=== PATIENT | male | born 1960 | race Caucasian/White ===

== ENCOUNTER 2018-09-28 09:10 | Day surgery (SDC) | payer OTHER ==
[2018-09-25 16:04] VITALS: BMI 25.2
[~2018-09-28 09:10] MED LIST: LACTATED RINGERS 1,000 ML IV SCH; LIDOCAINE 1% 20 ML VIAL (10MG/ML) FOR IV START INTRADERMA PRN
[2018-09-28 09:43] VITALS: RESP 16; TEMP 97.5
[2018-09-28] MEDS ORDERED: KETAMINE 10 MG/ML 20 ML VIAL ONE (10:59)
[2018-09-28] MEDS ORDERED: MIDAZOLAM 2 MG/2 ML VIAL ONE (10:59)
[2018-09-28] MEDS ORDERED: LIDOCAINE 1% INJ 10MG/ML (20 ML MDV) ONE (10:59)
[2018-09-28] MEDS ORDERED: GLYCOPYRROLATE 0.2 MG/ML 2 ML VIAL ONE (10:59)
[2018-09-28] MEDS ORDERED: PROPOFOL 10 MG/ML 20 ML VIAL IV ONE (10:59)
[2018-09-28 12:16] VITALS: BP 138/95; PULSE 66
--- NOTE | 2018-09-28 14:00 | P.PCN ---
Date of Procedure: 09/28/18 Procedure(s) Performed: Procedures: 1. Esophagogastroduodenoscopy and esophageal dilation using the Microvasive zffhgtc-rrq-owbei balloon dilator size 10-12 mm. 2. Total colonoscopy. Preoperative diagnosis: 1. Dysphagia and history of esophageal stricture. 2. Screening colonoscopy. Postoperative diagnosis: 1. Hiatal hernia and esophageal stricture dilated up to 12 mm. 2. Sigmoid diverticulosis with no evidence of strictures, polyps or cancer. Preparation: HalfLytely prep. Sedation: Was provided by anesthesia. Brief clinical history: The patient is a 58-year-old male who is scheduled for this evaluation because of issues with dysphagia for the last 2 years. He had an upper endoscopy and colonoscopy 10 years ago and had dilation of his esophagus at that time. Apparently, he has done well until around 2 years ago. He was supposed to have an upper endoscopy and dilation 1 year ago but had to reschedule. His dysphagia has been happening consistently but is not reporting weight loss or other alarm symptoms. The colonoscopy is and for screening. He has no abdominal complaints, bleeding or anemia. Procedure: With the patient on his left lateral decubitus position and after informed consent and adequate sedation, I passed the Olympus-GIF H 190 video upper endoscope through the cricopharyngeus down the esophagus. There was a Zenker's diverticulum noted. In the distal esophagus there was a benign appearing stricture that did not allow the advancement of the endoscope. I proceeded to pass the Microvasive wpeqeos-mjy-dtypo balloon dilator size 10-12 mm through the operating channel of the endoscope, centered it at the level of the stricture and inflated it first to 10 then to 11 mm following which I was able to pass the endoscope through the hiatal hernia to the rest of the stomach. The stomach was insufflated with air and inspected in detail including the retroflex view in the cardia. Finally, the endoscope was passed through the pylorus into the duodenum. The stomach, pyloric channel, duodenal bulb, post bulbar area and descending duodenum appeared within normal limits. At this point, the endoscope was withdrawn back to the esophagus and I centered the balloon at the level of the stricture and inflated it to 12 mm then the endoscope was withdrawn and I proceeded to perform the colonoscopy. Perianal area did not show any fissures or fistulas. There were no masses felt on digital rectal examination. The Olympus CFH 190L video colonoscope was then inserted in the rectum in the usual fashion and advanced to the cecum. There were multiple diverticular orifices seen scattered in the sigmoid but there was no evidence of acute diverticulitis or strictures. No polyps or tumors were seen. I retroflexed the endoscope in the rectum before the endoscope was withdrawn. Low-grade internal hemorrhoids were noted with no evidence of bleeding. The patient tolerated the procedure well. Plan: The patient was reassured. He will be on liquid diet today and can advance his diet tomorrow as tolerated. He will let us know as soon as he has recurrence of his symptoms so we can schedule further dilation. Discussed dietary measures for his diverticulosis and I recommended repeat colonoscopy in 10 years. He will follow up with you as planned.
== END 2018-09-28 12:45 | disposition home or self-care (01) ==
LOC: ORWHC2ENDO 09:10
DX: K22.2 Esophageal obstruction (principal); Z12.11 Encounter for screening for malignant neoplasm of colon; K44.9 Diaphragmatic hernia without obstruction or gangrene; K57.30 Diverticulosis of large intestine without perforation or abscess without bleeding; K64.8 Other hemorrhoids; E78.5 Hyperlipidemia, unspecified; F17.210 Nicotine dependence, cigarettes, uncomplicated; Z52.4 Kidney donor; Z79.899 Other long term (current) drug therapy
CPT/HCPCS: 43249; J2250; J2001; J2704; C1726; G0121

== ENCOUNTER → 2018-11-22 | Outpatient (CLI) | payer OTHER ==
--- NOTE | 2018-11-22 17:38 | CT ---
EXAMINATION TYPE: CT abdomen pelvis wo con DATE OF EXAM: 11/22/2018 HISTORY: lower anterior abdominal pain CT DLP: 448.7 mGycm. Automated Exposure Control for Dose Reduction was Utilized. TECHNIQUE: CT scan of the abdomen and pelvis is performed without oral or IV contrast. COMPARISON: NONE FINDINGS: Within the limitations of a non-contrast study, the following observations are made. LUNG BASES: No significant abnormality is appreciated. LIVER/GB: No significant abnormality is appreciated. PANCREAS: No significant abnormality is seen. SPLEEN: No significant abnormality is seen. ADRENALS: No significant abnormality is seen. KIDNEYS: Left kidney is not visualized consistent with patient's history of kidney donation 7 years a go. Surgical clips are noted near level of left adrenal gland. Bladder is poorly distended and thus s uboptimally evaluated. Some mild wall thickening along superior margin is presumed reactive inflammat ory change from adjacent acute diverticulitis. BOWEL: There are diverticula in the proximal to mid sigmoid colon with mild to moderate ill-defined f luid and fat stranding seen in the mid pelvis just left of midline extending posteriorly. No well-for med fluid collection or abscess is seen. No pneumoperitoneum. GENITAL ORGANS: No gross abnormality seen. LYMPH NODES: No greater than 1cm abdominal or pelvic lymph nodes are appreciated. OSSEOUS STRUCTURES: Mild height loss involving superior L5 endplate is present. There is mild height loss or compression involving the T11 and T12 vertebra. There is mild to moderate axial joint space l oss in both hips. OTHER: No significant additional abnormality is seen. IMPRESSION: CT findings consistent with a mild to moderate acute uncomplicated diverticulitis involvi ng the proximal to mid sigmoid colon centered in the mid pelvis just left of midline as detailed jack azar
== END | disposition home or self-care (01) ==
LOC: RADCTMAIN 16:35
PROVIDERS: ATTEND Family Medicine
DX: K57.32 Diverticulitis of large intestine without perforation or abscess without bleeding (principal)
CPT/HCPCS: 74176

== ENCOUNTER → 2022-11-02 | Outpatient (CLI) | payer OTHER ==
--- NOTE | 2022-11-02 09:50 | CTL ---
EXAMINATION TYPE: CT Low Dose Lung DATE OF EXAM ORDERED: 11/02/2022 HISTORY: 62-year-old male Z87.891 Personal hx of nicotine dependence, current smoker with 40 pack-yea r history. Lung cancer screening CT DLP: 102.[address] CTDI: 2.7 mGy Automated exposure control for dose reduction was used. SCREENING VISIT: Baseline COMPARISON: None TECHNIQUE: Low dose computed tomography scan was performed through the chest at with coronal and sagi ttal reconstructions. CT DIAGNOSTIC QUALITY: Satisfactory FINDINGS: Possible very large 6.4 cm Zenker's or [place] Jonnie diverticulum of the cervical esophagus. Consi harman GI evaluation. Heart normal size without pericardial effusion. 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 Conventional arch vessel branching anatomy. No thoracic lymphadenopathy by CT size criteria. Mild to moderate diffuse bronchial wall thickening. Mild emphysematous change. Mild biapical pleural- parenchymal scarring. There are scattered 5 mm and smaller bilateral pulmonary nodules. Largest measures 6 mm of the right middle lobe, axial image 248 and 8 mm superior segment right lower lobe at the upper lung level, axial image 106. No consolidation or pleural effusion. Some surgical material in the left renal fossa. Left kidney surgically absent. Old endplate Schmorl's nodes lower thoracic spine with accentuated kyphosis here. IMPRESSION: 1. LungRADS Category 4A (suspicious, 5-15% chance of malignancy); a few scattered pulmonary nodules, largest measuring 8 mm and 6 mm on baseline screening. 2. COPD with mild emphysema. Prominent component of chronic bronchitis versus superimposed acute bron chitis. Clinically correlate. Recommend smoking cessation. 3. Possible very large 6.4 cm Zenker's versus [place]nie diverticulum of the cervical esophagus . Recommend GI evaluation. 4. Mild aneurysm aortic root at 4.[address] LUNG RAD AND CT CHEST RECOMMENDATION: Lung-Rad 4A Suspicious: Follow-up 3 month LDCT or PET/CT may be used when there is a > 8 mm solid component. S Modifier (other clinically significant findings): S, see impression #3 above.
== END | disposition home or self-care (01) ==
LOC: RADCTMAIN 08:25
PROVIDERS: ATTEND Family Medicine
DX: Z12.2 Encounter for screening for malignant neoplasm of respiratory organs (principal); J43.9 Emphysema, unspecified; R91.8 Other nonspecific abnormal finding of lung field; F17.210 Nicotine dependence, cigarettes, uncomplicated
CPT/HCPCS: 71271

== ENCOUNTER 2022-11-09 10:28 | Day surgery (SDC) | payer OTHER ==
[2022-11-03 16:08] VITALS: BMI 37.4
[~2022-11-09 10:28] MED LIST changes: -LIDOCAINE 1% 20 ML VIAL (10MG/ML) FOR IV START INTRADERMA PRN
[2022-11-09 10:48] VITALS: RESP 16; TEMP 96.7
[2022-11-09] MEDS ORDERED: LIDOCAINE 2% INJ 20 MG/ML (2 ML VIAL) ONE (11:32)
[2022-11-09] MEDS ORDERED: PROPOFOL 10 MG/ML 20 ML VIAL IV ONE (11:32)
--- NOTE | 2022-11-09 11:49 | P.PCN ---
Date of Procedure: 11/09/22 Procedure(s) Performed: BRIEF HISTORY: Patient is a 62-year-old, pleasant, white male scheduled for an upper endoscopy as a part of evaluation of intermittent dysphagia to solids for the last several years duration. In the semiprone getting worse for the last 1 year has been having problems swallowing meat. Last EGD with dilation was in 2019 and he was noted to have a distal esophageal stricture... PROCEDURE PERFORMED: Esophagogastroduodenoscopy with dilation. PREOPERATIVE DIAGNOSIS: Progressive dysphagia to solids of 1 year duration. IV sedation per anesthesia. PROCEDURE: After informed consent was obtained, the patient was brought into the endoscopy unit. IV sedation was administered by Anesthesia under continuous monitoring. Initially the Olympus GIF-140 video endoscope was inserted into the mouth. Esophagus intubated without any difficulty. The 2 cm descending the diverticulum identified the proximal cervical esophagus with small amount of retained food. The esophagus was intubated. It was gradually advanced into the distal esophagus with a was a tight stricture identified at 40 cm from the incisors and is unable to advance the scope through the stricture. At this time I proceeded with balloon dilation using 10, 11 and 11.5 mm TTS balloon in a sequential fashion for 30 seconds. Following this there was brisk oozing identified and hence further dilation was not performed. With gentle pressure I was able to advance the scope into the stomach and duodenum and carefully examined. The bulb and the second part of the duodenum appeared normal. The scope at this time was withdrawn to the stomach, adequately insufflated with air, and upon careful examination, mucosa of the antrum, Estrace and biopsies were done from this area. Mucosa body, cardia and the fundus appeared normal. The scope was then withdrawn into the esophagus. Small hiatal hernia noted. The GE junction was located at 41 cm from the incisors. There was mucosal oozing noted at the site of distal esophageal stricture. Biopsies were done from the distal esophagus. The rest of the esophagus appeared normal. There were no erosions or ulcerations seen. There was a large Zenker's diverticulum noted in the proximal cervical esophagus and the patient tolerated the procedure well. IMPRESSION: 1. Tight distal esophageal stricture at 40 cm from the incisors status post balloon dilation using 10-1111.5 mm TTS balloon as described above. 2. 2 cm Zenker's diverticulum with retained food 3. Small hiatal hernia and mild antral gastritis. RECOMMENDATIONS: The findings of this examination were discussed with the patient as well as his family. Was advised to be on a clear liquid diet for l unch today.. He was started on omeprazole 20 mg daily for possible GERD causing esophageal stricture. He'll be seen in office in 3 months.
[2022-11-09 12:14] VITALS: BP 129/85; PULSE 56
== END 2022-11-09 12:36 | disposition home or self-care (01) ==
LOC: ORWHC2ENDO 10:28
PROVIDERS: ATTEND Internal Medicine Gastroenterology
DX: K29.50 Unspecified chronic gastritis without bleeding (principal); K22.2 Esophageal obstruction; K20.90 Esophagitis, unspecified without bleeding; K22.5 Diverticulum of esophagus, acquired; K44.9 Diaphragmatic hernia without obstruction or gangrene; F12.90 Cannabis use, unspecified, uncomplicated; Z79.899 Other long term (current) drug therapy; Z87.891 Personal history of nicotine dependence
CPT/HCPCS: 88305; 43239; 43249; J2704; J2001; C1726

== ENCOUNTER → 2022-11-17 | Outpatient (CLI) | payer OTHER ==
--- NOTE | 2022-11-17 11:47 | US ---
EXAMINATION TYPE: US Aorta Screening DATE OF EXAM: 11/17/2022 COMPARISON: CT abdomen pelvis 11/22/2018 CLINICAL INDICATION: Male, 62 years old with history of I47.40 ABDOMINAL AORTIC ANEURYSM, W/O RUPTURE ; Family hx of AAA. Smoker. No HTN. Patient donated left kidney and stated during surgery, they curt ked his Aorta. TECHNIQUE: Multiple sonographic images of the abdominal aorta are obtained. FINDINGS: EXAM MEASUREMENTS: Abdominal Aorta: Proximal: 2.2 x 2.3 cm Mid: 1.9 x 2.0 cm Distal: 1.7 x 1.8 cm Bifurcation: Right Iliac- 0.9 x 1.1 cm Left Iliac- 1.1 x 1.2 cm [employer]CH[employer]Y MEMBER NOTES: At distal Aorta, a septated appearing area seen at posterior wall = 1.2 x 0.9 cm. No internal color flow identified. No evidence of abdominal aortic aneurysm. Distal aorta septated area could represent chronic dissecti on. IMPRESSION: No evidence of abdominal aortic aneurysm. Septation demonstrated within the posterior wall of the distal abdominal aorta. This may represent a chronic dissection or related to patient reported aortic injury. The could be further evaluated with CTA abdomen and pelvis as clinically indicated.
== END | disposition home or self-care (01) ==
LOC: RADUSWWP 09:28
PROVIDERS: ATTEND Family Medicine
DX: I71.40 Abdominal aortic aneurysm, without rupture, unspecified (principal); F17.200 Nicotine dependence, unspecified, uncomplicated; Z52.4 Kidney donor
CPT/HCPCS: 76706

== ENCOUNTER → 2022-11-24 | Outpatient (CLI) | payer OTHER ==
[2022-11-24 10:43] LABS: ALT 15 U/L (4-49); AST 28 U/L (17-59); African American GFR (CKD) 83 (>60 ml/min/1.73 sqM); Albumin 4.5 g/dL (3.5-5.0); Albumin/Globulin Ratio 1.5; Alkaline Phosphatase 110 U/L (38-126); Anion Gap 9 mmol/L; Blood Urea Nitrogen 9 mg/dL (9-20); Calcium 9.2 mg/dL (8.4-10.2); Carbon Dioxide 26 mmol/L (22-30); Chloride 105 mmol/L (98-107); Globulin 3.1 g/dL; Glucose 95 mg/dL (74-99); Non-African American GFR(CKD) 72 (>60 ml/min/1.73 sqM); Potassium 4.2 mmol/L (3.5-5.1); Sodium 140 mmol/L (137-145); Total Bilirubin 0.6 mg/dL (0.2-1.3); Total Protein 7.6 g/dL (6.3-8.2)
--- NOTE | 2022-11-24 12:20 | CT ---
EXAMINATION TYPE: CT angio abdomen pelvis CT DLP: 529.9 mGycm, Automated exposure control for dose reduction was used. DATE OF EXAM: 11/24/2022 11:42 AM COMPARISON: Ultrasound aorta 11/17/2022, CT abdomen pelvis 11/22/2018 CLINICAL INDICATION:Male, 62 years old with history of I71.40; aortic aneurysm TECHNIQUE: Multiple thin slice sub-millimeter images were obtained through the abdomen and pelvis bef ore and after administration of contrast. Patient was given Isovue 370, 100 cc intravenously. 3-D r econstructed images and maximum intensity projection images were obtained of the abdomen, pelvis, and lower extremities. FINDINGS: CTA Abdomen and pelvis: No evidence for intramural hematoma or dissection. The abdominal aorta does n ot demonstrate aneurysmal dilatation. Atherosclerotic plaquing is identified within the abdominal ao rta. There is eccentric mural thrombus along the posterior left lateral wall of the infrarenal abdomi nal aorta. This probably represents ultrasound findings. The origins of the superior mesenteric arter y, right renal artery, inferior mesenteric artery, and celiac axis are patent. The iliac vessels are normal in morphology. Minimal atherosclerotic plaquing with some mural thrombus formation is identi fied in the common iliac arteries. Reflux of contrast into the IVC and hepatic veins suggesting right heart dysfunction. VISCERA: The liver, spleen, adrenal glands, kidneys, pancreas, and gallbladder are not optimally enha nced due the arterial phase utilized. LIVER: Unremarkable GALLBLADDER AND BILE DUCTS: Unremarkable. PANCREAS: Unremarkable. SPLEEN: Unremarkable. ADRENAL GLANDS: Unremarkable. KIDNEYS AND URETERS: The left kidney is surgically absent. No hydronephrosis or renal calculi involvi ng the right kidney. No focal lesion. PELVIS BLADDER: Unremarkable REPRODUCTIVE: Unremarkable. ABDOMEN & PELVIS STOMACH AND BOWEL: Stomach is unremarkable. Periampullary duodenal diverticulum demonstrated. Distal colonic diverticulosis without evidence for acute diverticulitis. The appendix is within normal limit s. No evidence of bowel obstruction. PERITONEUM: No evidence of pneumoperitoneum or free fluid. VASCULATURE: No evidence of aortic aneurysm. Stable chronic anterior wedge compression deformity of t he T11 vertebral body and stable compression deformity involving the anterior superior endplate of L5 . MUSCULOSKELETAL: No acute osseous abnormalities LYMPH NODES: No gross evidence for lymphadenopathy. SOFT TISSUE/ABDOMINAL WALL: Tiny fat filled umbilical hernia. IMPRESSION 1. Mild atherosclerotic disease of the abdominal aorta without evidence for aneurysm, dissection, or intramural hematoma. Posterior left lateral wall mild eccentric mural thrombus identified likely cor responding to ultrasound findings. 2. Post left nephrectomy changes. 3. Stable compression deformities involving the T11 and L5 vertebral bodies. 4. Colonic diverticulosis without evidence for acute diverticulitis.
== END | disposition home or self-care (01) ==
LOC: RADCTMAIN 09:55
PROVIDERS: ATTEND Nurse Practitioner Adult Health
DX: M48.54XA Collapsed vertebra, not elsewhere classified, thoracic region, initial encounter for fracture (principal); I71.40 Abdominal aortic aneurysm, without rupture, unspecified; I70.0 Atherosclerosis of aorta; K57.30 Diverticulosis of large intestine without perforation or abscess without bleeding; Z90.5 Acquired absence of kidney
CPT/HCPCS: 80053; 36415; 74174; Q9967

== ENCOUNTER → 2022-12-17 | Outpatient (CLI) | payer OTHER ==
--- NOTE | 2022-12-17 19:46 | PE ---
EXAMINATION TYPE: PET CT fusion skull to thigh DATE OF EXAM: 12/17/2022 CLINICAL INDICATION:Male, 62 years old with history of R91.8; TECHNIQUE: Following the intravenous administration of 11.35 mCi of F-18 FDG, whole body images are performed from the skull base to the midthigh. Images are reviewed on the computer in the coronal, axial, and sagittal planes. Reconstructed rotating images are created on independent workstation and reviewed on the computer. A non-contrast CT is performed in conjunction with the PET scan. Glucose level 86 mg/dL COMPARISON: CT 11/24/2022 11/02/2022, PET/CT None, FINDINGS: Mediastinal SUV mean is 1.6. Hepatic parenchyma SUV mean is 2.0. SKULL BASE AND NECK: No suspicious radiotracer activity. CHEST, MEDIASTINUM, AND HILAR REGION: * The finding in the right upper lobe correlates with intrafissural lymph node on sagittal imaging. * Right middle lobe pulmonary nodule measuring 5 mm is also present max SUV 0.3. * No suspicious radiotracer activity. ABDOMEN AND PELVIS: No suspicious radiotracer activity. No abnormal uptake within the left renal dhara a. OSSEOUS STRUCTURES: No suspicious radiotracer activity. FDG uptake within the right anterior rib #5 c orrelate with fracture change from CT imaging. This was seen on prior. Degeneration uptake within the left AC slightly asymmetric.. OTHER CT: Atherosclerosis of the arterial vasculature. Including the carotid bifurcations. Suspected large cecal diverticulum measuring up to 6.8 x 2.1 cm with layering fluid/debris. Mild bilateral gyne comastia. Left kidney appears surgically absent. Fat-containing umbilical hernia. Colonic diverticulo sis. IMPRESSION: No suspicious radiotracer activity. Pulmonary nodules do not demonstrate increased FDG activity. Cont inued yearly surveillance with CT low dose CT chest.
== END | disposition home or self-care (01) ==
LOC: RADPETMAIN 10:05
PROVIDERS: ATTEND Nurse Practitioner Adult Health
DX: R91.8 Other nonspecific abnormal finding of lung field (principal)
CPT/HCPCS: 78815; A9552

== ENCOUNTER → 2024-04-03 | Outpatient (CLI) | payer MEDICARE ==
--- NOTE | 2024-04-04 00:38 | US ---
EXAMINATION TYPE: US arterial LE single level DATE OF EXAM: 04/03/2024 3:19 PM CLINICAL INDICATION: Male, 63 years old with history of F17.200 NICOTINE DEPENDENCE; Cold feet History of: Smoker: Yes Hypertension: No Diabetic: No Hyperlipidemia: Yes TIA/CVA: No Previous Vascular Surgery: No CAD: No CT: No Vascular Ulcers: No Claudication: No Gangrene: No Doppler Waveforms: Right: Monophasic in the digital artery with biphasic waveforms elsewhere Left: Monophasic in the digital artery with biphasic waveforms elsewhere Ankle-Brachial Indices: Right: 1.2 Left: 1.2 (Vessel hardening > 1.4; Normal 0.9 - 1.4, Moderate 0.7 - 0.9, Severe 0.5-0.7) Toe Brachial Indices: Right: 0.62 Left: 0.82 IMPRESSION: 1. Severe stenosis right digital artery 2. Moderate narrowing left digital artery. [facility], , 04/04/2024 12:36 AM
== END | disposition home or self-care (01) ==
LOC: RADUSWWP 14:41
PROVIDERS: ATTEND Family Medicine
DX: F17.200 Nicotine dependence, unspecified, uncomplicated
CPT/HCPCS: 93922

== ENCOUNTER → 2024-09-04 | Outpatient (CLI) | payer MEDICARE ==
[2024-09-04 15:50] LABS: African American GFR (CKD) 89 (>60 ml/min/1.73 sqM); Blood Urea Nitrogen 12 mg/dL (9-20); Non-African American GFR(CKD) 77 (>60 ml/min/1.73 sqM)
--- NOTE | 2024-09-04 18:24 | CT ---
EXAMINATION TYPE: CT angio neck CT DLP: 316 mGycm, Automated exposure control for dose reduction was used. DATE OF EXAM: 09/04/2024 6:11 PM COMPARISON: PET CT 12/17/2022. CLINICAL INDICATION:Male, 64 years old with history of I65.139 OCCLUSION STENOSIS; PHH, swelling to r ight side of neck TECHNIQUE: Axially acquired helical CT angiogram of the neck was obtained with contrast utilizing 75 cc of Isovue-370 administered intravenously. Axial images are supplemented with 3D reconstructions wh ich were post-processed at an independent workstation. NASCET criteria used. FINDINGS: CTA NECK: Right Carotid System: The common carotid artery and external carotid artery are patent. Minimal atherosclerotic plaque at t he carotid bifurcation. The carotid bifurcation demonstrates no evidence of hemodynamically significa nt stenosis. The remaining portions of the internal carotid artery demonstrate normal size without si gnificant narrowing. Left Carotid System: The common carotid artery and external carotid artery are patent. Minimal atherosclerotic plaque at t he carotid bifurcation. The carotid bifurcation demonstrates no evidence of hemodynamically significa nt stenosis. The remaining portions of the internal carotid artery demonstrate normal size without si gnificant narrowing. Vertebral arteries are patent without evidence hemodynamically significant stenosis. The left vertebr al artery is dominant. There is a three-vessel aortic arch. The origins of the great vessels are patent. No evidence of hemo dynamically significant stenosis. origin of the right DISCOVERY MANAGER. The basilar artery is widely patent without aneurysm. Large Zenker's diverticulum redemonstrated containing debris. This measures up to 7.0 cm and extends most prominent along the right neck. Mild paraseptal emphysematous changes. Mild degenerative disc di sease of the cervical spine with anterior bridging. IMPRESSION: 1. No evidence of dissection of the cervical internal carotid arteries or vertebral arteries or any e vidence of significant stenosis at the carotid bifurcations. 2. Large Zenker's diverticulum redemonstrated. This extends along the right neck likely contributing to reported swelling. [facility], , 09/04/2024 6:22 PM
== END | disposition home or self-care (01) ==
LOC: RADCTMAIN 14:49
PROVIDERS: ATTEND Internal Medicine Interventional Cardiology
DX: I65.09 Occlusion and stenosis of unspecified vertebral artery (principal); K22.5 Diverticulum of esophagus, acquired
CPT/HCPCS: 82565; 84520; 70498; 36415; Q9967

== ENCOUNTER → 2024-10-22 | Outpatient (CLI) | payer MEDICARE ==
--- NOTE | 2024-10-22 11:48 | CTL ---
EXAMINATION TYPE: CT Low Dose Lung DATE OF EXAM ORDERED: 10/22/2024 COMPARISON: CTA neck 09/04/2024, PET/CT 12/17/2022, CT Low Dose Lung 11/02/2022 CLINICAL INDICATION: Male, 64 years old with history of Z12.2 ENCNTR SCREEN FOR MALIGNANT NEOPLASM OF RESP; PHH, current smoker 1 PPD x40 years, Lung cancer screening, History of Smoking/tobacco use. TECHNIQUE: Low dose computed tomography scan was performed through the chest at 1 mm thick sections a nd reconstructed images in multiple planes at 1 mm and [address] DLP: 86.[address] CTDI: 2.4 mGy Automated exposure control for dose reduction was used. CT DIAGNOSTIC QUALITY: Satisfactory FINDINGS: Nodules: Few stable pulmonary nodules as described below. Stable left lateral upper lobe 3.4 mm groundglass pulmonary nodule (series 6, image 13). Stable superior segment right lower lobe 8.6 mm pulmonary nodule (series 6, image 20). This abuts the major fissure. Stable anterior right middle lobe 6.1 mm pulmonary nodule (series 6, image 47). No new or enlarging pulmonary nodules. LUNGS: COPD: Severity: Mild paraseptal emphysematous changes. Fibrosis: Severity: None Lymph nodes: None Other findings: None RIGHT PLEURAL SPACE: Effusion: None Calcification: None Thickening: None Pneumothorax: None LEFT PLEURAL SPACE: Effusion: None Calcification: None Thickening: None Pneumothorax: None HEART: Heart Size: Normal Coronary Calcification: None Pericardial Effusion: None OTHER FINDINGS: Upper abdomen: Postsurgical changes from left nephrectomy partially visualized. Bony thorax: Multilevel degenerative disc disease of the lower thoracic spine with Schmorl's node inv olving superior endplate of the vertebral body. Supraclavicular region: Partial visualization of large Zenker's diverticulum. Other: Stable aneurysmal dilatation of the aortic root measured 4.1 cm. IMPRESSION: 1. Few stable pulmonary nodules dating back to 11/02/2022. No new or enlarging pulmonary nodules. 2. Mild COPD changes. 3. Large Zenker's diverticulum partially visualized. 4. Stable aneurysm dilatation of the aortic root. CT LUNG RAD AND CT CHEST RECOMMENDATION: Lung-Rad 2 Benign Appearance or Behavior: Continue annual sc reening with LDCT in 12 months. S Modifier (other clinically significant findings): None [facility]: [id number], 10/22/2024 11:45 AM
== END | disposition home or self-care (01) ==
LOC: RADCTMAIN 10:41
PROVIDERS: ATTEND Family Medicine
DX: Z12.2 Encounter for screening for malignant neoplasm of respiratory organs (principal); F17.210 Nicotine dependence, cigarettes, uncomplicated; J44.9 Chronic obstructive pulmonary disease, unspecified; K22.5 Diverticulum of esophagus, acquired; R91.8 Other nonspecific abnormal finding of lung field; I71.9 Aortic aneurysm of unspecified site, without rupture
CPT/HCPCS: 71271